=== PATIENT | female | born 1990 | race Caucasian/White ===

== ENCOUNTER 2020-01-23 00:21 | Emergency (ER) | payer OTHER ==
[~2020-01-23] VITALS: Ht 160 cm; Wt 86.2 kg
[2020-01-23 02:10] VITALS: BP 122/82
[2020-01-23] MEDS ORDERED: methylPREDNISolone SOD SUCC 125 MG/2 ML VL IM ONE (02:15)
[2020-01-23] MEDS ORDERED: KETOROLAC TROMETH 60MG/2ML VIAL IM ONE (02:15)
== END 2020-01-23 02:49 | disposition home or self-care (01) ==
LOC: ER 00:21
DX: S52.125A Nondisplaced fracture of head of left radius, initial encounter for closed fracture (principal); Z88.2 Allergy status to sulfonamides; W18.11XA Fall from or off toilet without subsequent striking against object, initial encounter; Y93.02 Activity, running; Y92.091 Bathroom in other non-institutional residence as the place of occurrence of the external cause; Y99.8 Other external cause status
CPT/HCPCS: 29105; 73080; 73090; 81025; 96372; 99284; J1885; J2930